=== PATIENT | male | born 1985 | race Caucasian/White ===

== ENCOUNTER 2017-02-28 14:02 | Emergency (ER) | payer BC ==
[~2017-02-28] VITALS: Ht 172.7 cm; Wt 77.1 kg
[2017-02-28 14:03] VITALS: BP 139/76
[2017-02-28] MEDS ORDERED: IBUP600T26 PO (14:08)
[2017-02-28] MEDS ORDERED: MULT1TAB10 PO (14:08)
[2017-02-28] MEDS ORDERED: TRAM50TA2 PO (14:08)
[2017-02-28] MEDS ORDERED: CLEO300C2 PO (14:57)
[2017-02-28] MEDS ORDERED: NORCOTAB PO (14:57)
[2017-02-28] MEDS ORDERED: LIDOCAINE VISCOUS 2% SOLN 15ML UDC SSP ONE (15:00)
== END 2017-02-28 15:09 | disposition home or self-care (01) ==
LOC: M ED 14:37
DX: K04.7 Periapical abscess without sinus (principal); Z88.0 Allergy status to penicillin; Z88.5 Allergy status to narcotic agent; Z87.891 Personal history of nicotine dependence

== ENCOUNTER 2017-03-15 13:03 | Emergency (ER) | payer BC ==
[~2017-03-15] VITALS: Ht 172.7 cm; Wt 74.8 kg
[~2017-03-15 13:03] MED LIST: CLEO300C2 PO; IBUP600T26 PO; MULT1TAB10 PO; NORCOTAB PO; TRAM50TA2 PO
[2017-03-15 13:04] VITALS: BP 147/92
[2017-03-15] MEDS ORDERED: IMIT6INJ SC (13:12)
[2017-03-15] MEDS ORDERED: LIDO2SO SSP (13:48)
[2017-03-15] MEDS ORDERED: CLIN1CAP5 PO (13:48)
[2017-03-15] MEDS ORDERED: NORCOTAB PO (13:48)
== END 2017-03-15 14:17 | disposition home or self-care (01) ==
LOC: M ED 13:56
DX: K02.9 Dental caries, unspecified (principal); Z79.899 Other long term (current) drug therapy; Z88.0 Allergy status to penicillin; Z88.5 Allergy status to narcotic agent; Z87.891 Personal history of nicotine dependence

== ENCOUNTER 2017-05-07 05:55 | Emergency (ER) | payer BC ==
[~2017-05-07 05:55] MED LIST changes: +CLIN150C14 PO; +IBUP-1022 PO; -IBUP600T26 PO; +IMIT6INJ SC; +LIDO2SO SSP
[2017-05-07 06:01] VITALS: BP 126/89
[2017-05-07] MEDS ORDERED: CLIN150C14 PO (06:27)
== END 2017-05-07 06:49 | disposition home or self-care (01) ==
LOC: M ED 05:55
DX: K04.7 Periapical abscess without sinus (principal)

== ENCOUNTER 2017-07-19 13:57 | Emergency (ER) | payer BC, SELFPAY ==
[~2017-07-19] VITALS: Ht 172.7 cm; Wt 77.3 kg
[2017-07-19] MEDS ORDERED: TRAM50TA2 PO (14:05)
[2017-07-19] MEDS ORDERED: KETOROLAC 60 MG/2 ML VIAL (J1885) IM ONE (15:15)
--- NOTE | 2017-07-19 15:57 | REP ---
Clinical: Trauma. Technique: AP, lateral, bilateral oblique views of the right ankle. Findings: No acute fracture or dislocation. Skeletal structures, joint spaces, and surrounding soft tissues appear normal. Ankle mortise intact. Impression: Normal right ankle. No acute fracture dislocation. Signed by Dong Palma MD 07/19/2017 03:48 P
--- NOTE | 2017-07-19 15:58 | REP ---
Clinical: Trauma. Technique: AP, lateral, bilateral oblique views right foot . Findings: The osseous structures and joint spaces are intact and normal. There is no evidence for acute fracture or dislocation. Surrounding soft tissues are unremarkable. No subcutaneous emphysema or radiodense foreign body. Impression: Normal right foot radiographs . No acute fracture or dislocation. Signed by Dong Palma MD 07/19/2017 03:49 P
[2017-07-19] MEDS ORDERED: NAPR500T PO (16:12)
[2017-07-19 16:30] VITALS: BP 144/76
== END 2017-07-19 16:31 | disposition home or self-care (01) ==
LOC: M ED 13:57
DX: S93.401A Sprain of unspecified ligament of right ankle, initial encounter (principal); S93.601A Unspecified sprain of right foot, initial encounter; X50.1XXA Overexertion from prolonged static or awkward postures, initial encounter; Y92.099 Unspecified place in other non-institutional residence as the place of occurrence of the external cause; Y93.01 Activity, walking, marching and hiking; Y99.9 Unspecified external cause status
CPT/HCPCS: 73610; 73630; 96372; 99283; J1885

== ENCOUNTER 2017-12-19 08:10 | Emergency (ER) | payer SELFPAY ==
[2017-12-19] MEDS: NAPROXEN 250 MG TAB PO (09:30)
== END 2017-12-19 10:01 | disposition home or self-care (01) ==
LOC: M ED 08:10
DX: S80.01XA Contusion of right knee, initial encounter (principal); W00.9XXA Unspecified fall due to ice and snow, initial encounter; Y92.9 Unspecified place or not applicable; Y93.29 Activity, other involving ice and snow
CPT/HCPCS: 73564

== ENCOUNTER 2018-03-13 02:12 | Emergency (ER) | payer SELFPAY ==
[2018-03-13] MEDS: KETOROLAC 60 MG/2 ML VIAL (J1885) IM (02:45)
== END 2018-03-13 03:40 | disposition home or self-care (01) ==
LOC: M ED 02:12
DX: S46.912A Strain of unspecified muscle, fascia and tendon at shoulder and upper arm level, left arm, initial encounter (principal); X50.0XXA Overexertion from strenuous movement or load, initial encounter; Y92.9 Unspecified place or not applicable; Y93.89 Activity, other specified; Y99.9 Unspecified external cause status; G89.29 Other chronic pain; M54.9 Dorsalgia, unspecified; G43.909 Migraine, unspecified, not intractable, without status migrainosus; F17.200 Nicotine dependence, unspecified, uncomplicated; Z79.899 Other long term (current) drug therapy; Z88.0 Allergy status to penicillin; Z88.5 Allergy status to narcotic agent
CPT/HCPCS: J1885

== ENCOUNTER 2019-05-02 19:02 | Emergency (ER) | payer SELFPAY ==
[~2019-05-02] VITALS: Ht 170.2 cm; Wt 75.0 kg
[2019-05-02 19:02] VITALS: BP 134/74
[~2019-05-02 19:02] MED LIST changes: +ALEV220C2 PO; +HYDR-3715 PO; +IBUP1TAB7 PO; +NAPR-837 PO; -NORCOTAB PO
== END 2019-05-02 21:07 | disposition left against medical advice (07) ==
LOC: M ED 19:02
DX: Z53.29 Procedure and treatment not carried out because of patient's decision for other reasons (principal)

== ENCOUNTER 2019-06-09 07:56 | Emergency (ER) | payer SELFPAY ==
[~2019-06-09] VITALS: Ht 170.2 cm; Wt 75.0 kg
[2019-06-09 07:56] VITALS: BP 140/91
[2019-06-09] MEDS ORDERED: IBUP-1022 PO (08:00)
[2019-06-09] MEDS ORDERED: NON-325T5 PO (08:00)
[2019-06-09] MEDS ORDERED: BENZOCAINE 20% GEL 9GM TUBE (ANBESOL MAX STRENGTH) TOP ONE (09:00)
[2019-06-09] MEDS ORDERED: LIDOCAINE 2% W/ EPINEPHRINE 1.7 ML DENTAL INJ SM ONE (09:00)
== END 2019-06-09 09:26 | disposition left against medical advice (07) ==
LOC: M ED 07:56
DX: K02.9 Dental caries, unspecified (principal)

== ENCOUNTER 2019-08-04 03:44 | Emergency (ER) | payer SELFPAY ==
[~2019-08-04] VITALS: Ht 170.2 cm; Wt 74.2 kg
[~2019-08-04 03:44] MED LIST changes: +NON-325T5 PO
[2019-08-04] MEDS ORDERED: PERCOCET 5MG/325MG TAB PO ONE (04:30)
[2019-08-04] MEDS ORDERED: CLINDAMYCIN 150 MG CAP PO ONE (04:30)
[2019-08-04] MEDS ORDERED: PERC5TAB12 PO (04:44)
[2019-08-04] MEDS ORDERED: CLIN150C14 PO (04:44)
[2019-08-04 05:44] VITALS: BP 131/76
== END 2019-08-04 05:57 | disposition home or self-care (01) ==
LOC: M ED 03:44
DX: S02.5XXA Fracture of tooth (traumatic), initial encounter for closed fracture (principal); K08.89 Other specified disorders of teeth and supporting structures; X58.XXXA Exposure to other specified factors, initial encounter; Y92.9 Unspecified place or not applicable; Y93.89 Activity, other specified; Y99.9 Unspecified external cause status; K02.9 Dental caries, unspecified; R51 Headache; Z88.0 Allergy status to penicillin; Z88.5 Allergy status to narcotic agent

== ENCOUNTER 2019-08-17 11:15 | Emergency (ER) | payer SELFPAY ==
[~2019-08-17] VITALS: Ht 170.2 cm; Wt 71.2 kg
[~2019-08-17 11:15] MED LIST changes: +PERC5TAB12 PO
[2019-08-17 11:16] VITALS: BP 137/81
[2019-08-17] MEDS ORDERED: ACET-683 PO (11:22)
[2019-08-17] MEDS ORDERED: IBUP80TA PO (11:22)
[2019-08-17] MEDS ORDERED: LIDO1SOL8 PO (11:36)
[2019-08-17] MEDS ORDERED: KETO10TAB PO (11:36)
[2019-08-17] MEDS ORDERED: CLEO300C2 PO (11:36)
== END 2019-08-17 11:49 | disposition home or self-care (01) ==
LOC: M ED 11:15
DX: K04.7 Periapical abscess without sinus (principal); Z88.5 Allergy status to narcotic agent; Z88.0 Allergy status to penicillin

== ENCOUNTER 2020-01-29 12:55 | Emergency (ER) | payer OTHER, SELFPAY ==
[~2020-01-29] VITALS: Ht 172.7 cm; Wt 77.9 kg
[2020-01-29 12:55] VITALS: BP 135/84
[~2020-01-29 12:55] MED LIST changes: +ACET-683 PO; +IBUP80TA PO; +KETO10TAB PO; +LIDO2SOL17 PO
== END 2020-01-29 13:49 | disposition home or self-care (01) ==
LOC: M ED 12:55
DX: Z71.51 Drug abuse counseling and surveillance of drug abuser (principal); G47.9 Sleep disorder, unspecified; R63.8 Other symptoms and signs concerning food and fluid intake; F17.200 Nicotine dependence, unspecified, uncomplicated; F11.10 Opioid abuse, uncomplicated; F14.10 Cocaine abuse, uncomplicated; Z88.0 Allergy status to penicillin; Z88.5 Allergy status to narcotic agent

== ENCOUNTER → 2020-09-17 | Outpatient (CLI) | payer OTHER ==
[2020-09-17 14:55] LABS: HEMATOCRIT 38.7 % (42.0-52.0); HEMOGLOBIN 13.4 g/dl (13.5-17.5); MEAN CORPUSCULAR HEMOGLOBIN 31.8 pg (27.0-33.0); MEAN CORPUSCULAR HGB CONC 34.6 g/dl (32.0-36.5); MEAN CORPUSCULAR VOLUME 91.7 fl (80.0-96.0); PLATELET COUNT, AUTOMATED 218 10^3/uL (150-450); RED BLOOD COUNT 4.22 10^6/uL (4.30-6.10); WHITE BLOOD COUNT 7.7 10^3/uL (4.0-10.0)
[2020-09-17 15:23] LABS: ALBUMIN 4.5 GM/DL (3.2-5.2); ALT/SGPT 20 U/L (12-78); BILIRUBIN,TOTAL 0.5 MG/DL (0.2-1.0); BLOOD UREA NITROGEN 17 MG/DL (7-18); CALCIUM LEVEL 9.3 MG/DL (8.5-10.1); CARBON DIOXIDE LEVEL 27 MEQ/L (21-32); CHLORIDE LEVEL 106 MEQ/L (98-107); CREATININE FOR GFR 0.85 MG/DL (0.70-1.30); GLOMERULAR FILTRATION RATE > 60.0 (>60); GLUCOSE, FASTING 73 MG/DL (70-100); POTASSIUM SERUM 4.5 MEQ/L (3.5-5.1); SODIUM LEVEL 138 MEQ/L (136-145); TOTAL PROTEIN 7.2 GM/DL (6.4-8.2)
[2020-09-17 15:45] LABS: HEPATITIS B SURFACE ANTIGEN NEGATIVE (NEGATIVE)
[2020-09-17 16:13] LABS: HEPATITIS C VIRUS ABY INDEX < 0.0 INDEX (<0.8)
[2020-09-17 16:14] LABS: HIV 1&2 SCREEN CENTAUR NEGATIVE (NEGATIVE)
--- NOTE | 2020-09-17 23:50 | ECGEPIP ---
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
== END ==
LOC: M LAB 13:26
PROVIDERS: ATTEND Family Medicine
DX: F11.20 Opioid dependence, uncomplicated (principal)

== ENCOUNTER → 2022-02-24 | Outpatient (CLI) | payer OTHER ==
[~2022-02-24] MED LIST changes: +ACET32TAB PO; -CLIN150C14 PO; +CLIN150C17 PO; -NON-325T5 PO
[2022-02-24 12:03] LABS: HEMATOCRIT 40.3 % (42.0-52.0); MEAN CORPUSCULAR HEMOGLOBIN 31.5 pg (27.0-33.0); MEAN CORPUSCULAR HGB CONC 34.7 g/dl (32.0-36.5); MEAN CORPUSCULAR VOLUME 90.6 fl (80.0-96.0); PLATELET COUNT, AUTOMATED 256 10^3/uL (150-450); RED BLOOD COUNT 4.45 10^6/uL (4.30-6.10); WHITE BLOOD COUNT 5.9 10^3/uL (4.0-10.0)
[2022-02-24 12:30] LABS: ALBUMIN 4.6 GM/DL (3.2-5.2); ALT/SGPT 25 U/L (12-78); BILIRUBIN,TOTAL 0.6 MG/DL (0.2-1.0); BLOOD UREA NITROGEN 29 MG/DL (7-18); CALCIUM LEVEL 10.2 MG/DL (8.5-10.1); CARBON DIOXIDE LEVEL 29 MEQ/L (21-32); CHLORIDE LEVEL 107 MEQ/L (98-107); CREATININE FOR GFR 0.89 MG/DL (0.70-1.30); GLOMERULAR FILTRATION RATE > 60.0 (>60); GLUCOSE, FASTING 96 MG/DL (70-100); POTASSIUM SERUM 4.8 MEQ/L (3.5-5.1); SODIUM LEVEL 138 MEQ/L (136-145); TOTAL PROTEIN 7.6 GM/DL (6.4-8.2)
[2022-02-24 12:53] LABS: HEPATITIS B SURFACE ANTIGEN NEGATIVE (NEGATIVE)
[2022-02-24 13:20] LABS: HEPATITIS C VIRUS ABY INDEX 0.1 INDEX (<0.8)
[2022-02-24 13:21] LABS: HIV 1&2 SCREEN CENTAUR NEGATIVE (NEGATIVE)
[2022-02-24 13:34] LABS: GC DNA AMPLIFICATION NEGATIVE (NEGATIVE)
[2022-02-25 16:08] LABS: HEPATITIS C QUANTITATION HCV Not Detected IU/mL (.)
== END ==
LOC: M EKG 11:08
PROVIDERS: ATTEND Family Medicine
DX: F90.9 Attention-deficit hyperactivity disorder, unspecified type (principal); F11.20 Opioid dependence, uncomplicated; R00.1 Bradycardia, unspecified

== ENCOUNTER 2022-08-21 00:10 | Emergency (ER) | payer OTHER ==
[2022-08-21] MEDS ORDERED: QUET1TAB17 (06:54)
[2022-08-21] MEDS ORDERED: AMPHET/DEXTR (06:54)
[2022-08-21] MEDS ORDERED: SUBO8MIS (06:54)
[2022-08-21] MEDS ORDERED: CLEO300C2 PO (12:27)
== END 2022-08-21 00:22 | disposition left against medical advice (07) ==
LOC: M ED 00:10
DX: Z53.21 Procedure and treatment not carried out due to patient leaving prior to being seen by health care provider (principal)

== ENCOUNTER 2022-08-21 06:38 | Emergency (ER) | payer OTHER ==
[~2022-08-21] VITALS: Ht 170.2 cm; Wt 77.3 kg
[2022-08-21] MEDS ORDERED: SUBO8MIS (06:54)
[2022-08-21] MEDS ORDERED: AMPHET/DEXTR (06:54)
[2022-08-21] MEDS ORDERED: QUET1TAB17 (06:54)
[2022-08-21 06:58] VITALS: BP 110/80
[2022-08-21] MEDS ORDERED: CLEO300C2 PO (12:27)
== END 2022-08-21 08:35 | disposition left against medical advice (07) ==
LOC: M ED 06:38
DX: Z53.21 Procedure and treatment not carried out due to patient leaving prior to being seen by health care provider (principal)

== ENCOUNTER 2022-08-21 09:41 | Emergency (ER) | payer OTHER ==
[~2022-08-21] VITALS: Ht 170.2 cm; Wt 0.8 kg
[~2022-08-21 09:41] MED LIST changes: +AMPHET/DEXTR; +QUET1TAB17; +SUBO8MIS
[2022-08-21 09:42] VITALS: BP 139/86
[2022-08-21] MEDS ORDERED: MORPHINE 10 MG/ML 1ML VIAL IM ONE (10:10)
[2022-08-21] MEDS ORDERED: LIDOCAINE W/EPINEPHRINE 1% 20ML VIAL SC ONE (12:15)
[2022-08-21] MEDS ORDERED: CLEO300C2 PO (12:27)
== END 2022-08-21 12:36 | disposition home or self-care (01) ==
LOC: M ED 09:41
DX: S56.821A Laceration of other muscles, fascia and tendons at forearm level, right arm, initial encounter (principal); W22.8XXA Striking against or struck by other objects, initial encounter; W25.XXXA Contact with sharp glass, initial encounter; Z53.20 Procedure and treatment not carried out because of patient's decision for unspecified reasons; Z88.0 Allergy status to penicillin; Z88.5 Allergy status to narcotic agent
CPT/HCPCS: 73090; 73130; 96372; 99283; J2270

== ENCOUNTER 2024-08-24 08:30 | Emergency (ER) | payer OTHER ==
[~2024-08-24] VITALS: Ht 170.2 cm; Wt 80.9 kg
[~2024-08-24 08:30] MED LIST changes: +LIDO15SO8 PO; +LIDO15SO9 SSP; -LIDO2SO SSP; -LIDO2SOL17 PO
[2024-08-24 08:31] VITALS: TEMP 96.9
[2024-08-24] MEDS: ACETAMINOPHEN 500 MG TAB PO ONE (09:11)
[2024-08-24] MEDS: KETOROLAC 30 MG/ML 1ML VIAL IV ONE (09:11)
[2024-08-24 13:00] VITALS: BP 145/78; O2SAT 99
== END 2024-08-24 13:25 | disposition short-term general hospital (02) ==
LOC: M ED 08:30
DX: S02.401A Maxillary fracture, unspecified side, initial encounter for closed fracture (principal); S02.2XXA Fracture of nasal bones, initial encounter for closed fracture; W22.8XXA Striking against or struck by other objects, initial encounter; Y92.9 Unspecified place or not applicable; Y93.9 Activity, unspecified; Y99.0 Civilian activity done for income or pay; Z79.899 Other long term (current) drug therapy; Z88.0 Allergy status to penicillin; Z88.5 Allergy status to narcotic agent
CPT/HCPCS: 70450; 70486; 72125; 80047; 96374; 99285; J1885